=== PATIENT | female | born 1945 | race Caucasian/White ===

== ENCOUNTER → 2020-08-21 | Outpatient (CLI) | payer MEDICARE, OTHER | LOC: EMI 08:25 | DX: M25.511 Pain in right shoulder (principal) | CPT/HCPCS: 73221 ==

== ENCOUNTER → 2021-01-31 | Outpatient (CLI) | payer MEDICARE, OTHER | LOC: KOH-I 10:56 | DX: J01.81 Other acute recurrent sinusitis (principal); J34.89 Other specified disorders of nose and nasal sinuses; J34.2 Deviated nasal septum | CPT/HCPCS: 70486 ==

== ENCOUNTER → 2021-02-22 | Outpatient (CLI) | payer MEDICARE, OTHER ==
[~2021-02-22] MED LIST: ALPHA LIPOIC ACID PO; FENUGREEK500 MG PO; MAGNESIUM PO; METFORMIN HCL500 MG PO; SUDAFED PO; VITAMIN A PO; VITAMIN D PO; VITAMIN E PO; ZOCOR20 MG PO
[2021-02-22 09:47] LABS: HEMOGLOBIN 13.8 gm/dl (12.3-15.3); RED BLOOD COUNT 4.68 M/UL (4.00-5.10)
[2021-02-22 10:20] LABS: BUN/CREATININE RATIO 17 (0-10)
== END ==
LOC: OPSV2 08:53 → EDSTATUS 09:00 → OPSV2 09:00
PROVIDERS: Orthopaedic Surgery
DX: Z01.818 Encounter for other preprocedural examination (principal); M12.9 Arthropathy, unspecified; I45.2 Bifascicular block
CPT/HCPCS: 36415; 71046; 80048; 83036; 85027; 93005

== ENCOUNTER → 2021-04-09 | Outpatient (CLI) | payer MEDICARE, OTHER ==
[2021-04-09 10:36] LABS: HEMOGLOBIN 13.5 gm/dl (12.3-15.3); RED BLOOD COUNT 4.52 M/UL (4.00-5.10); WHITE BLOOD COUNT 8.8 K/UL (4.5-11.0)
[2021-04-09 10:51] LABS: BUN/CREATININE RATIO 20 (0-10)
== END ==
LOC: EDSTATUS 09:00 → OPSV2 09:00
PROVIDERS: Orthopaedic Surgery
DX: Z01.818 Encounter for other preprocedural examination (principal); M12.9 Arthropathy, unspecified
CPT/HCPCS: 36415; 71046; 80048; 83036; 85027; 93005

== ENCOUNTER → 2021-04-19 | Outpatient (CLI) | payer MEDICARE, OTHER | LOC: KOH-I 04-12 16:00 | DX: Z01.818 Encounter for other preprocedural examination (principal) | CPT/HCPCS: 73200 ==

== ENCOUNTER → 2021-04-22 | Outpatient (CLI) | payer MEDICARE, OTHER ==
[~2021-04-22] MED LIST changes: +HYDROCODON-ACE1 EAC2 PO; +TURMERIC-TAMAR250 MG PO
[2021-04-22 10:49] LABS: BUN/CREATININE RATIO 18 (0-10)
== END ==
LOC: LAB 09:55
PROVIDERS: Orthopaedic Surgery
DX: Z01.812 Encounter for preprocedural laboratory examination (principal); M12.9 Arthropathy, unspecified
CPT/HCPCS: 36415; 80048; 86850; 86900; 86901

== ENCOUNTER 2021-04-23 05:24 | Day surgery (SDC) | payer MEDICARE, OTHER ==
[~2021-04-23] VITALS: Ht 167.6 cm; Wt 60.8 kg
[~2021-04-23 05:24] MED LIST changes: -HYDROCODON-ACE1 EAC2 PO; -TURMERIC-TAMAR250 MG PO
[2021-04-23] MEDS ORDERED: TURMERIC-TAMAR250 MG PO (06:37)
[2021-04-23] MEDS ORDERED: HYDROCODON-ACE1 EAC2 PO (10:44)
[2021-04-24 07:37] LABS: HEMOGLOBIN 11.1 gm/dl (12.3-15.3); RED BLOOD COUNT 3.88 M/UL (4.00-5.10); WHITE BLOOD COUNT 11.7 K/UL (4.5-11.0)
[2021-04-24 08:22] LABS: BUN/CREATININE RATIO 19 (0-10)
--- NOTE | 2021-04-24 10:26 | NUR ---
SKIP DRESSING PACKET INSTRUCTIONS GIVEN TO PATIENT WITH DISCHARGE INSTRUCTIONS. PATIENT VERBALIZED UNDERSTANDING OF CARE.
== END 2021-04-24 10:43 | disposition home or self-care (01) ==
LOC: OR 05:24 → M/S 12:30 → OR 04-24 10:43
PROVIDERS: Orthopaedic Surgery
DX: M12.811 Other specific arthropathies, not elsewhere classified, right shoulder (principal); E78.5 Hyperlipidemia, unspecified; E11.9 Type 2 diabetes mellitus without complications; M75.51 Bursitis of right shoulder; Z88.6 Allergy status to analgesic agent; Z88.8 Allergy status to other drugs, medicaments and biological substances; Z90.49 Acquired absence of other specified parts of digestive tract; Z98.51 Tubal ligation status; Z20.822 Contact with and (suspected) exposure to COVID-19
CPT/HCPCS: 73020; 80048; 82962; 85025; 97161; 97166; 97530; 97535; J0592; J0690; J1100; J1200; J2250; J2405; J2704; J2710; J2795; J3370; J3475; J7030; J7120

== ENCOUNTER 2021-12-12 20:06 | Emergency (ER) | payer MEDICARE, OTHER ==
[~2021-12-12 20:06] MED LIST changes: +HYDROCODON-ACE1 EAC2 PO; +TURMERIC-TAMAR250 MG PO
[2021-12-12] MEDS ORDERED: ZOFRAN 4 MG TAB4 MG PO (21:11)
== END 2021-12-12 21:13 | disposition home or self-care (01) ==
LOC: ER1 20:06
DX: U07.1 COVID-19 (principal); E11.9 Type 2 diabetes mellitus without complications; R40.2410 Glasgow coma scale score 13-15, unspecified time; Z88.8 Allergy status to other drugs, medicaments and biological substances
CPT/HCPCS: 99284; U0002